=== PATIENT | female | born 1980 | race Caucasian/White ===

== ENCOUNTER → 2017-02-19 | Outpatient (CLI) | payer BC | LOC: CARD 15:34 | PROVIDERS: ATTEND Nurse Practitioner Family | DX: R00.2 Palpitations (principal) | CPT/HCPCS: 93005 ==

== ENCOUNTER → 2017-09-21 | Outpatient (CLI) | payer BC ==
--- NOTE | 2017-09-21 08:55 | Diagnostic Imaging Report ---
Clinical indication: Patient with headaches and dizziness x6 months. Headaches are behind the eyes. Exam: MRI of the brain performed without IV contrast. Sequences include axial DWI, ADC map, axial T2, axial FLAIR, axial T1, axial gradient echo, and sagittal T1. Comparison: None. Findings: There is no evidence of acute cerebral infarct, intracranial hemorrhage, or gross mass effect. The brain parenchymal volume appears appropriate for patient's age. There is normal sung-white matter distinction. There is no significant midline shift or herniation. The [place] vascular structures show no gross abnormality as visualized. The pituitary gland, sella, and suprasellar regions are unremarkable as visualized. There is no evidence of hydrocephalus. The basal cisterns are unremarkable. The skull, extracranial soft tissue, and orbits are unremarkable. The paranasal sinuses are unremarkable. Temporal bones show no significant abnormality. Impression: Unremarkable MRI of the brain. Dictated by: Dictated on workstation # [id number]
== END ==
LOC: RAD 08:01
PROVIDERS: ATTEND Nurse Practitioner Family
DX: R51 Headache (principal); R42 Dizziness and giddiness
CPT/HCPCS: 70551

== ENCOUNTER 2018-01-24 07:15 | Outpatient (RCR) | payer BC ==
--- NOTE | 2017-12-30 12:55 | Diagnostic Imaging Report ---
PROCEDURE: US Thyroid. TECHNIQUE: Multiple real-time grayscale images were obtained of the thyroid in various projections. INDICATION: Palpitations. FINDINGS: The previous thyroid ultrasound exam of 05/22/2013 noted that the thyroid gland was borderline enlarged, but that there was no discrete lesion within either the right or left lobes. On this study, the thyroid gland is not enlarged. The right lobe measures 4.8 x 1.5 x 2.0 cm while the left lobe is estimated to be 4.8 x 1.6 x 1.5 cm (normal gland size 4-5 x 2 x 2 cm or less). On the prior exam, the right lobe measured 5.2 x 1.7 x 1.6 cm and the left lobe was estimated to be 4.8 x 1.8 x 1.5 cm. In the interval since the prior study, a small 4 x 3 x 3 mm hypoechoic nodule has developed in the superior pole of the right lobe. This finding is of uncertain etiology but most likely benign. If further evaluation is desired, then a short-term (three-month) follow-up thyroid ultrasound exam should be obtained. Each lobe of the thyroid is otherwise homogeneous. IMPRESSION: 1. The thyroid gland is not enlarged. 2. In the interval since the prior study, a small benign-appearing hypoechoic lesion has developed in the superior pole of the right lobe. Recommendations as above. 3. There is no discrete solid or cystic mass within either lobe noted otherwise. Dictated by: Dictated on workstation # [id number]
== END 2018-03-30 | disposition home or self-care (01) ==
LOC: CARD 07:15
PROVIDERS: ATTEND Nurse Practitioner Family
DX: E07.9 Disorder of thyroid, unspecified (principal); R00.2 Palpitations; R13.10 Dysphagia, unspecified; R07.9 Chest pain, unspecified; R49.0 Dysphonia
CPT/HCPCS: 76536; 93270

== ENCOUNTER 2018-03-02 07:18 | Outpatient (RCR) | payer BC | END 2018-03-25 | disposition home or self-care (01) | LOC: CARD 07:18 | PROVIDERS: ATTEND Family Medicine | DX: I49.3 Ventricular premature depolarization (principal) | CPT/HCPCS: 93225; 93226 ==

== ENCOUNTER → 2018-04-14 | Outpatient (CLI) | payer BC ==
--- NOTE | 2018-04-14 17:12 | Diagnostic Imaging Report ---
PROCEDURE: US Thyroid. TECHNIQUE: Multiple real-time grayscale images were obtained of the thyroid in various projections. INDICATION: Thyroid nodule. FINDINGS: The right thyroid lobe measures 4.6 x 2.0 x 1.9 cm and contains a 4 mm circumscribed hypoechoic nodule at its upper pole unchanged from study of 12/30/2017. The left thyroid lobe is 4.7 x 1.6 x 1.6 cm and is nonfocal. The isthmus is normal. There is no abnormal color Doppler blood flow. IMPRESSION: Tiny 3 mm benign right lobe nodule. No dominant or suspicious mass. Dictated by: Dictated on workstation # [id number]
== END ==
LOC: RAD 16:34
PROVIDERS: ATTEND Nurse Practitioner Family
DX: E04.1 Nontoxic single thyroid nodule (principal)
CPT/HCPCS: 76536

== ENCOUNTER 2018-09-02 09:22 | Outpatient (CLI) | payer BC | END 2018-09-02 10:05 | disposition home or self-care (01) | LOC: SLEEP 09:22 | PROVIDERS: ATTEND Nurse Practitioner Family | DX: G47.10 Hypersomnia, unspecified (principal); R06.83 Snoring; I10 Essential (primary) hypertension ==